=== PATIENT | female | born 1990 | race Native Hawaiian/Other Pacific Islander ===

== ENCOUNTER → 2021-04-02 | Outpatient (CLI) | payer BC ==
--- NOTE | 2021-04-02 11:38 | Diagnostic Imaging Report ---
INDICATION: Assessment during normal . TECHNIQUE: Multiple real-time grayscale images were obtained over the gravid uterus. COMPARISON: None. FINDINGS: Single viable intrauterine , currently in a breech presentation. Normal amount of amniotic fluid. Placenta is posterior and without previa. Visualized anatomical structures including the kidneys, bladder, stomach, intracranial structures, four-chamber heart, three-vessel cord, spine, and umbilical cord insertion site appearing unremarkable. Cervical length at approximately 5 cm. Adnexa not visualized. Biometrical measurements are as follows: Biparietal 4.65 cm, age 20 weeks 1 days. Head circumference 17.11 cm, age 19 weeks 5 days. Abdominal circumference 13.84 cm, age 19 weeks 2 days. Femur length 2.94 cm, age 19 weeks 1 days. Sonographic estimate age: 19 weeks 4 days. Sonographic estimated date of delivery: 08/23/21. Estimated Weight: 282 gm (+/- 41 gm). LMP percentile: 9%. heart rate: 143 beats per minute. number: 1 of 1. IMPRESSION: 1. Single viable intrauterine , currently in a breech presentation. Sonographic estimated age at 19 weeks 4 days for an estimated date of delivery of August 23, 2021. No abnormalities demonstrated at this time. Dictated by: Dictated on workstation # [id number]
== END ==
LOC: RAD 10:00
PROVIDERS: ATTEND Nurse Practitioner Women's Health
DX: O32.1XX0 Maternal care for breech presentation, not applicable or unspecified (principal); Z3A.19 19 weeks gestation of pregnancy
CPT/HCPCS: 76805

== ENCOUNTER 2021-08-12 07:30 | Inpatient (IN) | payer BC ==
[2021-08-12] VITALS (64 sets, daily range): BP systolic 92–158; BP diastolic 50–96
[~2021-08-12] VITALS: Ht 165.1 cm; Wt 101.8 kg
[2021-08-12] MEDS ORDERED: LIDOCAINE/EPI 2% 1:200,00 (XYLOCAINE) 20 ML VIAL INJ PRN (08:15)
[2021-08-12] MEDS ORDERED: MINERAL OIL CONCENTRATE 99.9% 15 ML UDC TOP PRN (08:15)
[2021-08-12] MEDS ORDERED: AMPICILLIN FOR IV USE 2,000 MG in WATER (STERILE) FOR INJECTION 14.8 ML IV ONE (08:30)
[2021-08-12 08:40] LABS: BASOPHILS # (AUTO) 0.1 10^3/uL (0.0-0.1); BASOPHILS % (AUTO) 1 % (0-10); EOSINOPHILS # (AUTO) 0.2 10^3/uL (0.0-0.3); EOSINOPHILS % (AUTO) 2 % (0-10); HEMATOCRIT 37 % (35-52); HEMOGLOBIN 12.6 g/dL (11.5-16.0); LYMPHOCYTES # (AUTO) 2.2 10^3/uL (1.0-4.0); LYMPHOCYTES % (AUTO) 18 % (12-44); MEAN CORPUSCULAR HEMOGLOBIN 30 pg (25-34); MEAN CORPUSCULAR HGB CONC 34 g/dL (32-36); MEAN CORPUSCULAR VOLUME 87 fL (80-99); MEAN PLATELET VOLUME 10.9 fL (9.0-12.2); MONOCYTES # (AUTO) 0.7 10^3/uL (0.0-1.0); MONOCYTES % (AUTO) 5 % (0-12); NEUTROPHILS # (AUTO) 9.3 10^3/uL (1.8-7.8); NEUTROPHILS % (AUTO) 74 % (42-75); PLATELET COUNT 294 10^3/uL (130-400); WHITE BLOOD COUNT 12.5 10^3/uL (4.3-11.0)
[2021-08-12] MEDS: D5 LR IV SOLUTION 1,000 ML IV SCH ×2 (08:43→16:32)
[2021-08-12 08:46] LABS: CLARITY,URINE CLEAR; COLOR,URINE YELLOW; GLUCOSE, URINE (UA) NEGATIVE (NEGATIVE); KETONES,URINE TRACE (NEGATIVE); LEUKOCYTE ESTERASE ,URINE NEGATIVE (NEGATIVE); NITRITE,URINE NEGATIVE (NEGATIVE); PROTEIN,URINE TRACE (NEGATIVE)
[2021-08-12 09:03] LABS: BACTERIA,URINE FEW /HPF
[2021-08-12 09:04] LABS: BILIRUBIN,URINE 1+ (NEGATIVE); URIC ACID CRYSTALS,URINE MODERATE /LPF
[2021-08-12] MEDS ORDERED: OXYTOCIN PRE-MIX DRIP 500 ML IV ONE (09:29)
[2021-08-12] MEDS ORDERED: OXYTOCIN PRE-MIX DRIP 500 ML IV SCH ×2 (09:30→20:00)
--- NOTE | 2021-08-12 09:30 | History & Physical-OB ---
OB - Chief Complaint & HPI Date/Time Date of Admission: Date of Admission: Aug 12, 2021 at 07:35 Date seen by a Provider: Aug 12, 2021 Time Seen by a Provider: 09:30 Chief Complaint/History OB-Reason for Admission/Chief: Induction of Labor Hx : 3 Hx Para: 2 Expected Date of Delivery: Aug 19, 2021 Gestational Age in Weeks: 39 Indication for induction: maternal distance Indication for : other (social induction) Admission Nurse Assessment Rev: Yes History of Labs A+/- HBsAg - VDRL NR Rub I HIV - Hep C - GBS + Other Positive for covid December 2020 Allergies and Home Medications Allergies Coded Allergies: midazolam (Verified Allergy, Unknown, Rash, 08/12/21) Patient Home Medication List Home Medication List Reviewed: Yes OB - History Hx of Present Care: Yes Ultrasounds: Normal mid trimester US Obstetrical Complications: None Medical Complications: None Information Induced Hypertension: No Maternal Gestational Diabetes: No Hemorrhage: No Obstetrical History Hx : 3 Hx Para: 2 Hx # Term Pregnancies: 2 Hx # Pregnancies: 0 Number of Living Children: 2 Hx Multiple Gestation: No Hx Ectopic : No Hx Stillbirth: No Hx Complication: No Hx Induced Hypertens: No Hx Maternal Gestational Diabet: No Hx Hemorrhage: No Delivery History Hx Dystocia: No Hx Forceps Assisted Delivery: No Hx Vacuum Extraction Assisted: No Hx Placenta Abnormality: No Hx Distress: No Hx Large For Gestational Age I: No Hx Small for Gestational Age I: No Hx Blood Disorders: No Adverse Rxn to Tranfusion: No Patient Past Medical History NC Social History/Family History Alcohol Use: Denies Use Recreational Drug Use: No Smoking Cessation: Never smoker 2nd Hand Smoke Exposure: No Immunizations Hepatitis A: Yes Hepatitis B: Yes Tetanus Booster (TDap): Less than 5yrs (04/2021) Date of Influenza Vaccine: Aug 04, 2021 Rubella: immune RPR/VDRL: Negative GBS Status: Negative HBsAG: Negative OB - Admission Exam Physical Exam Vitals: see RN notes HEENT: NCAT Heart: Rhythm Normal Lungs: Clear Abdomen: Gravid Cervical Dilatation: 3cm Effacement: 50% Station: -2 Membranes: Intact Heart Rate: 140's Accelerations: Accelerations Present Decelerations: No Decelerations Short Term Variability: Present [facility] Variability: Average (6-25) Contractions on Admission: >10 Minutes Apart Briseno Scoring Tool (Modified) Dilation (cm): 3-4cm (2) Effacement (%): 51-79% (2) Descent/Station: -2 (1) Cervix Consistency: Soft (2) Cervix Position: Middle/Mid-Position (1) Add 1 point for: Each previous vaginal delivery (1) (2) Briseno Score: 10 Labs Laboratory Tests Test 08/12/21 08:00 08/12/21 08:28 Range/Units Urine Color YELLOW Urine Clarity CLEAR Urine pH 6.0 5-9 Urine Specific [place] 1.020 1.016-1.022 Urine Protein TRACE H NEGATIVE Urine Glucose (UA) NEGATIVE NEGATIVE Urine Ketones TRACE H NEGATIVE Urine Nitrite NEGATIVE NEGATIVE Urine Bilirubin 1+ H NEGATIVE Urine Urobilinogen 1.0 < = 1.0 MG/DL Urine Leukocyte Esterase NEGATIVE NEGATIVE Urine RBC (Auto) NEGATIVE NEGATIVE Urine RBC NONE /HPF Urine WBC NONE /HPF Urine Squamous Epithelial Cells 2-5 /HPF Urine Crystals PRESENT H /LPF Urine Uric Acid Crystals MODERATE H /LPF Urine Bacteria FEW H /HPF Urine Casts NONE /LPF Urine Mucus MODERATE H /LPF Urine Culture Indicated NO White Blood Count 12.5 H 4.3-11.0 10^3/uL Red Blood Count 4.24 3.80-5.11 10^6/uL Hemoglobin 12.6 11.5-16.0 g/dL Hematocrit 37 35-52 % Mean Corpuscular Volume 87 80-99 fL Mean Corpuscular Hemoglobin 30 25-34 pg Mean Corpuscular Hemoglobin Concent 34 32-36 g/dL Red Cell Distribution Width 13.3 10.0-14.5 % Platelet Count 294 130-400 10^3/uL Mean Platelet Volume 10.9 9.0-12.2 fL Immature Granulocyte % (Auto) 1 % Neutrophils (%) (Auto) 74 42-75 % Lymphocytes (%) (Auto) 18 12-44 % Monocytes (%) (Auto) 5 0-12 % Eosinophils (%) (Auto) 2 0-10 % Basophils (%) (Auto) 1 0-10 % Neutrophils # (Auto) 9.3 H 1.8-7.8 10^3/uL Lymphocytes # (Auto) 2.2 1.0-4.0 10^3/uL Monocytes # (Auto) 0.7 0.0-1.0 10^3/uL Eosinophils # (Auto) 0.2 0.0-0.3 10^3/uL Basophils # (Auto) 0.1 0.0-0.1 10^3/uL Immature Granulocyte # (Auto) 0.1 0.0-0.1 10^3/uL OB - Assessment/Plan/Diagnosis Assessment Assessment: induction of labor Admission Dx 39 week induction of labor GBS + Admission Status: Inpatient Order (span 2 midnights) Reason for Inpatient Admission: labor Plan Plan: Expectant Management (admit for induction. GBS prophylaxis with augmentation, then AROM. Peds - [place]) Induction Method: per Pitocin Protocol TRAV PASCUAL DO Aug 12, 2021 09:30
[2021-08-12] MEDS ORDERED: PREN-37 PO (10:10)
[2021-08-12] MEDS ORDERED: CALCIUM CARBONATE 500 MG (TUMS) TAB.CHEW ONE (10:45)
[2021-08-12] MEDS ORDERED: CALCIUM CARBONATE 500 MG (TUMS) TAB.CHEW PO ONE (10:45)
[2021-08-12] MEDS: AMPICILLIN FOR IV USE 1,000 MG in WATER (STERILE) FOR INJECTION 7.4 ML IV SCH ×2 (12:32→16:33)
[2021-08-12] MEDS ORDERED: CATHETER FLUSH 10 ML SYR IV SCH ×2 (14:00→22:00)
[2021-08-12] MEDS ORDERED: fentaNYL 2 mcg/ml BUPIVA 0.125 100 ML ONE (14:11)
[2021-08-12] MEDS ORDERED: LACTATED RINGERS 1,000 ML IV SCH (15:15)
[2021-08-12] MEDS ORDERED: METOCLOPRAMIDE INJ 10 MG/2 ML (REGLAN) IV PRN (15:15)
[2021-08-12] MEDS ORDERED: ONDANSETRON 4 MG/2 ML (SDV) Z0FRAN IV PRN (15:15)
[2021-08-12] MEDS ORDERED: NALOXONE 0.4 MG/ML 1 ML (NARCAN) VIAL IV PRN ×3 (15:15→20:00)
[2021-08-12] MEDS ORDERED: EPIDURAL (fentaNYL 2 MCG/ML BUPIVA 0.125%)100 ML BAG EPI SCH (15:15)
[2021-08-12] MEDS ORDERED: diphenhydrAMINE 50 MG/ML INJ (BENADRYL) IV PRN (15:15)
--- NOTE | 2021-08-12 19:59 | OB Labor & Delivery Record ---
Vag Delivery Note Vag Delivery Note Date of Delivery: 08/12/21 Preoperative Diagnosis: Love Delgado is a 30 /Para 3 / 2,Gestational Age 39 weeks with social induction, GBS + Postoperative Diagnosis: Same Surgeon: TRAV PASCUAL Anesthesia: epidural Delivery Type: spontaneous vaginal delivery Findings: Viable male infant, apgars 8/9, weight 8#11 ounces Lacerations: none Intact placenta with 3 vessel cord. Nuchal cord, x 1 delivered through. compound presentation with right hand at chin. No body cord or shoulder dystocia Estimated Blood Loss: 250 ml Complications: None Condition: Stable Description of Procedure: The patient is a 30 year old female at 39 week gestation who presented for social induction. She was admitted and informed consent was obtained. Her labor course was remarkable for ampicillin for GBS prophylaxis, pitocin augmentation and AROM. She progressed to complete dilatation and began to push. She was then set up for delivery. The 's head was delivered atraumatically in the NESHA position, compound presentation with hand at chin. The shoulders and remainder of the 's body were then delivered without difficulty. Upon delivery, the head was held below the level of the perineum and the mouth and nares were bulb suctioned. The cord was doubly clamped and cut and the was handed off to the pediatric staff. An intact placenta with 3-vessel cord delivered via Angela and there was found to be minimal bleeding.~ Vigorous fundal massage was performed and the fundus was found to be firm. IV oxytocin was given. Examination of the vagina and perineum revealed no laceration. Following the delivery, sponge, instrument and needle counts were correct. Mom and baby were both in stable condition in the labor suite. Vitals - Labs Vital Signs - I&O Vital Signs Date Time Temp Pulse Resp B/P (MAP) Pulse Ox O2 Delivery O2 Flow Rate FiO2 08/12/21 14:00 77 18 157/84 (108) Room Air 08/12/21 13:45 75 18 124/71 (88) Room Air 08/12/21 13:30 77 18 139/85 (103) Room Air 08/12/21 13:15 36.4 Room Air 08/12/21 13:00 73 18 135/73 (93) Room Air 08/12/21 12:45 71 18 119/76 (90) Room Air 08/12/21 12:30 71 18 127/73 (91) Room Air 08/12/21 12:15 75 18 126/79 (95) Room Air 08/12/21 12:00 79 18 123/73 (90) Room Air 08/12/21 11:45 93 18 128/85 (99) Room Air 08/12/21 11:30 108 18 109/70 (83) Room Air 08/12/21 11:15 75 18 125/79 (94) Room Air 08/12/21 11:00 75 18 125/79 (94) Room Air 08/12/21 10:45 74 18 135/93 (107) Room Air 08/12/21 10:30 36.4 78 18 136/96 (109) Room Air 08/12/21 10:15 74 18 128/83 (98) Room Air 08/12/21 10:00 74 18 134/87 (103) Room Air 08/12/21 09:45 70 18 130/84 (99) Room Air 08/12/21 09:36 36.3 74 18 97 Room Air 08/12/21 09:30 78 18 128/86 (100) Room Air Labs Laboratory Tests 08/12/21 08:00: Urine Color YELLOW, Urine Clarity CLEAR, Urine pH 6.0, Urine Specific [place] 1 .020, Urine Protein TRACEH, Urine Glucose (UA) NEGATIVE, Urine Ketones TRACEH, Urine Nitrite NEGATIVE, Urine Bilirubin 1+H, Urine Urobilinogen 1.0, Urine Leukocyte Esterase NEGATIVE, Urine RBC (Auto) NEGATIVE, Urine RBC NONE, Urine WBC NONE, Urine Squamous Epithelial Cells 2-5, Urine Crystals PRESENTH, Urine Uric Acid Crystals MODERATEH, Urine Bacteria FEWH, Urine Casts NONE, Urine Mucus MODERATEH, Urine Culture Indicated NO 08/12/21 08:28: White Blood Count 12.5H, Red Blood Count 4.24, Hemoglobin 12.6, Hematocrit 37, Mean Corpuscular Volume 87, Mean Corpuscular Hemoglobin 30, Mean Corpuscular Hemoglobin Concent 34, Red Cell Distribution Width 13.3, Platelet Count 294, Mean Platelet Volume 10.9, Immature Granulocyte % (Auto) 1, Neutrophils (%) (Auto) 74, Lymphocytes (%) (Auto) 18, Monocytes (%) (Auto) 5, Eosinophils (%) (Auto) 2, Basophils (%) (Auto) 1, Neutrophils # (Auto) 9.3H, Lymphocytes # (Auto) 2.2, Monocytes # (Auto) 0.7, Eosinophils # (Auto) 0.2, Basophils # (Auto) 0.1, Immature Granulocyte # (Auto) 0.1 TRAV PASCUAL DO Aug 12, 2021 19:59
[2021-08-12] MEDS ORDERED: WITCH HAZEL(TUCKS) 40 EA JAR TOP PRN (20:00)
[2021-08-12] MEDS ORDERED: TETANUS,DIPTH,PERTUSS P/F (BOOSTRIX) 0.5 ML VIAL IM ONE (20:00)
[2021-08-12] MEDS ORDERED: MEASLES,MUMPS,RUBELLA 1 EA INJ SQ ONE (20:00)
[2021-08-12] MEDS ORDERED: BENZOCAINE/MENTHOL (DERMOPLAST) 56 ML CAN TP PRN (20:00)
[2021-08-12] MEDS ORDERED: DIBUCAINE 1% OINTMENT 30 GM TUBE TOP PRN (20:00)
[2021-08-13] MEDS: IBUPROFEN 600 MG (MOTRIN) TAB PO SCH ×4 (00:17→18:11)
[2021-08-13] MEDS: ACETAMINOPHEN 500 MG TAB (TYLENOL) PO SCH ×3 (00:17→16:17)
[2021-08-13 05:03] VITALS: BP 113/62
[2021-08-13 06:32] LABS: BASOPHILS # (AUTO) 0.1 10^3/uL (0.0-0.1); BASOPHILS % (AUTO) 0 % (0-10); EOSINOPHILS # (AUTO) 0.2 10^3/uL (0.0-0.3); EOSINOPHILS % (AUTO) 2 % (0-10); HEMATOCRIT 35 % (35-52); HEMOGLOBIN 11.6 g/dL (11.5-16.0); LYMPHOCYTES # (AUTO) 2.4 10^3/uL (1.0-4.0); LYMPHOCYTES % (AUTO) 17 % (12-44); MEAN CORPUSCULAR HEMOGLOBIN 29 pg (25-34); MEAN CORPUSCULAR HGB CONC 33 g/dL (32-36); MEAN CORPUSCULAR VOLUME 88 fL (80-99); MEAN PLATELET VOLUME 11.2 fL (9.0-12.2); MONOCYTES # (AUTO) 0.8 10^3/uL (0.0-1.0); MONOCYTES % (AUTO) 6 % (0-12); NEUTROPHILS # (AUTO) 10.4 10^3/uL (1.8-7.8); NEUTROPHILS % (AUTO) 75 % (42-75); PLATELET COUNT 277 10^3/uL (130-400); WHITE BLOOD COUNT 13.9 10^3/uL (4.3-11.0)
[2021-08-13] MEDS: DOCUSATE SODIUM 100 MG (COLACE) CAP PO SCH ×2 (08:14→20:22)
[2021-08-13] MEDS: FERROUS SULF 325 MG (IRON) TAB PO SCH (08:14)
[2021-08-13] MEDS: PRENATAL VITAMIN 1 EA TAB PO SCH (08:14)
[2021-08-13] MEDS ORDERED: DOCU100C37 PO (08:21)
[2021-08-13] MEDS ORDERED: ACET-93 PO (08:21)
[2021-08-13] MEDS ORDERED: IBUP-844 PO (08:21)
--- NOTE | 2021-08-13 08:23 | Discharge Inst-Women's Service ---
Discharge Inst-Women's Serv Depart Medication/Instructions New, Converted or Re-Newed RX: Transmitted to Pharmacy Final Diagnosis social induction vaginal delivery Problems Reviewed?: Yes Consults/Follow Up Additional Follow Up: Yes (6 week post ) Activity Activity: Activity as Tolerated Driving Instructions: You May Drive NO SMOKING: NO SMOKING Nothing Inside Vagina: No Douching, No [place] (4 weeks), No Tampons Diet Discharge Diet: No Restrictions Symptoms to Report to : Bleeding Excessive, Pain Increased, Fever Over 101 Degrees F, Vaginal Bleeding Increase, Cramps in Feet or Legs, Vaginal Discharge Foul For Any Problems or Questions: Contact Your Physician TRAV PASCUAL DO Aug 13, 2021 08:23
[2021-08-13 09:00] VITALS: BP 102/55
--- NOTE | 2021-08-13 11:52 | Postpartum Progress Note ---
Note Note Day # 1 Subjective: Patient is without complaints. Ambulating, voiding. Tolerating a regular diet without nausea or vomiting. Normal lochia. Pain is well controlled with oral pain medications. Objective: Physical Exam: General - Alert and oriented, no apparent distress Abdomen - Soft, appropriately tender to palpation, non-distended, fundus firm at umbilicus Extremities - no edema, negative Ronald's bilaterally Assessment: Post- day # 1, status post vaginal delivery. Recovering well, hemodynamically stable Acute blood loss anemia Plan: Routine care. Encourage breast feeding. Encourage ambulation. Ferrous sulfate supplementation. Plan for discharge tomorrow Vitals - Labs Vital Signs - I&O Vital Signs Date Time Temp Pulse Resp B/P (MAP) Pulse Ox O2 Delivery O2 Flow Rate FiO2 08/13/21 09:00 36.0 70 18 102/55 (71) 96 Room Air 08/13/21 05:03 36.1 65 18 113/62 (79) 96 Room Air 08/12/21 23:44 72 18 102/54 (70) Room Air 08/12/21 23:14 72 18 100/55 (70) Room Air 08/12/21 22:43 99 18 109/70 (83) Room Air 08/12/21 22:14 75 18 126/69 (88) Room Air 08/12/21 21:44 74 18 134/85 (101) Room Air 08/12/21 21:13 75 18 122/72 (89) Room Air 08/12/21 20:39 77 18 138/72 (94) Room Air 08/12/21 20:10 133 18 102/52 (69) Room Air 08/12/21 19:54 81 18 126/63 (84) Room Air 08/12/21 19:45 76 18 134/69 (90) Room Air 08/12/21 19:30 36.4 75 18 132/74 (93) Room Air 08/12/21 19:15 77 18 134/83 (100) Room Air 08/12/21 14:00 77 18 157/84 (108) Room Air 08/12/21 13:45 75 18 124/71 (88) Room Air 08/12/21 13:30 77 18 139/85 (103) Room Air 08/12/21 13:15 36.4 Room Air 08/12/21 13:00 73 18 135/73 (93) Room Air 08/12/21 12:45 71 18 119/76 (90) Room Air 08/12/21 12:30 71 18 127/73 (91) Room Air 08/12/21 12:15 75 18 126/79 (95) Room Air 08/12/21 12:00 79 18 123/73 (90) Room Air I & O 08/13/21 07:00 Intake Total 3022.2 ml Balance 3022.2 ml Labs Laboratory Tests 08/13/21 06:02: White Blood Count 13.9H, Red Blood Count 4.03, Hemoglobin 11.6, Hematocrit 35, Mean Corpuscular Volume 88, Mean Corpuscular Hemoglobin 29, Mean Corpuscular Hemoglobin Concent 33, Red Cell Distribution Width 13.2, Platelet Count 277, Mean Platelet Volume 11.2, Immature Granulocyte % (Auto) 0, Neutrophils (%) (Auto) 75, Lymphocytes (%) (Auto) 17, Monocytes (%) (Auto) 6, Eosinophils (%) (Auto) 2, Basophils (%) (Auto) 0, Neutrophils # (Auto) 10.4H, Lymphocytes # (Auto) 2.4, Monocytes # (Auto) 0.8, Eosinophils # (Auto) 0.2, Basophils # (Auto) 0.1, Immature Granulocyte # (Auto) 0.1 RICKY MCMANUS APRN Aug 13, 2021 11:52
--- NOTE | 2021-08-13 12:24 | Anesthesia-Regional Post-Op ---
Regional Patient Condition Mental Status: Alert, Oriented x3 Circulation: Same as Pre-Op Headache: Absent Sensation: Full Recovery Motor Block: Absent Post Op Complications Complications None Follow Up Care/Instructions Patient Instructions None needed. Anesthesia/Patient Condition Patient is doing well, no complaints, stable vital signs, no apparent adverse anesthesia problems. No complications reported per nursing. WOLF COOPER CRNA Aug 13, 2021 12:24
[2021-08-13] MEDS: AMPICILLIN FOR IV USE 1,000 MG in WATER (STERILE) FOR INJECTION 7.4 ML IV SCH (12:29)
[2021-08-13 13:08] VITALS: BP 123/67
[2021-08-13 16:17] VITALS: BP 134/88
[2021-08-13 20:21] VITALS: BP 123/58
[2021-08-14] MEDS: IBUPROFEN 600 MG (MOTRIN) TAB PO SCH ×2 (01:31→09:22)
[2021-08-14 01:35] VITALS: BP 141/72
--- NOTE | 2021-08-14 08:36 | Postpartum Progress Note ---
Note Note Day # 2 s/p Subjective: Patient is without complaints. Ambulating, voiding. Tolerating a regular diet w ithout nausea or vomiting. Normal lochia. Pain is well controlled with oral pain medications. breast feeding. Objective: 08/14/21 01:35 Temp 36.1 Pulse 70 Resp 18 B/P (MAP) 141/72 (95) Pulse Ox 97 O2 Delivery Room Air Physical Exam: General - Alert and oriented, no apparent distress Abdomen - Soft, appropriately tender to palpation, non-distended, fundus firm at umbilicus Extremities - no edema, negative Ronald's bilaterally Assessment: 1. post- day # 2 , status post spontaneous vaginal delivery. Recovering well, hemodynamically stable Plan: Routine care. Encourage breast feeding. Encourage ambulation. Ferrous sulfate supplementation. Plan for discharge today Vitals - Labs Vital Signs - I&O Vital Signs Date Time Temp Pulse Resp B/P (MAP) Pulse Ox O2 Delivery O2 Flow Rate FiO2 08/14/21 01:35 36.1 70 18 141/72 (95) 97 Room Air 08/13/21 20:21 36.1 69 18 123/58 (79) 97 Room Air 08/13/21 16:17 36.1 66 17 134/88 (103) 95 Room Air 08/13/21 13:08 36.0 73 16 123/67 (85) 96 Room Air 08/13/21 09:00 36.0 70 18 102/55 (71) 96 Room Air TRAV PASCUAL DO Aug 14, 2021 08:36
[2021-08-14 09:18] VITALS: BP 142/74
[2021-08-14] MEDS: PRENATAL VITAMIN 1 EA TAB PO SCH (09:22)
[2021-08-14] MEDS: DOCUSATE SODIUM 100 MG (COLACE) CAP PO SCH (09:22)
[2021-08-14] MEDS: FERROUS SULF 325 MG (IRON) TAB PO SCH (09:22)
[2021-08-14] MEDS: ACETAMINOPHEN 500 MG TAB (TYLENOL) PO SCH (09:23)
== END 2021-08-14 11:30 | disposition home or self-care (01) | DRG 806 ==
LOC: LDRP 07:35
PROVIDERS: ADMIT Obstetrics & Gynecology; ATTEND Obstetrics & Gynecology
PROC: 10E0XZZ Delivery of Products of Conception, External Approach (ICD-10-PCS; principal; 2021-08-12)
PROC: 10907ZC Drainage of Amniotic Fluid, Therapeutic from Products of Conception, Via Natural or Artificial Opening (ICD-10-PCS; 2021-08-12)
DX: O99.824 Streptococcus B carrier state complicating childbirth (principal); D62 Acute posthemorrhagic anemia; Z37.0 Single live birth; Z3A.39 39 weeks gestation of pregnancy; O69.81X0 Labor and delivery complicated by cord around neck, without compression, not applicable or unspecified; O90.81 Anemia of the puerperium
CPT/HCPCS: 36415; 81000; 85025; 86850; 86900; 86901